=== PATIENT | female | born 1945 | race Caucasian/White ===

== ENCOUNTER → 2018-09-04 10:02 | Outpatient (CLI) | payer MEDICARE, BC ==
--- NOTE | 2018-09-05 11:19 | ST ---
PATIENT:NATTY APARICIO MEDICAL RECORD: [id number] SEX: F LOCATION:[facility] ORDER #: ADMISSION DATE: 09/04/18 AGE OF PATIENT: 73 REFERRING PHYSICIAN: INTERPRETING PHYSICIAN: CATARINO RIVERO MD DATE OF SERVICE: 09/04/2018 PROCEDURE: Nuclear stress test. INDICATIONS: Chest pain compatible with angina, abnormal ECG, shortness of breath. She was exercised on a standard Carlos Eduardo protocol for 5 minutes achieving greater than 85% max target heart rate response with 31 mCi of sestamibi injected at peak stress, 11 mCi used previously for rest images. FINDINGS: Gated SPECT reveals preserved ejection fraction at 70% with good wall motion and thickening and brightening throughout all segments. SPECT imaging Cardiolite was used as myocardial fusion agent. There is homogeneous uptake throughout all segments at rest and stress with no evidence of inducible ischemia or previous infarction. OVERALL IMPRESSION: 1. This is a normal nuclear stress test with no evidence of inducible ischemia or previous infarction. 2. Gated SPECT reveals a preserved ejection fraction at 70%. In this patient with ongoing symptomatology, the current scan does not suggest the presence of hemodynamically significant coronary artery disease. Evaluate noncardiac etiology of chest pain. TRANSINT:[id number] Voice Confirmation ID: [id number] DOCUMENT ID: [id number] CATARINO RIVERO MD at 1119 CC: [id number] DICTATION DATE: 09/04/18 1609 SYSTEMS DEVELOPMENT CONSULTANT: 09/05/18 0122 DEP CLI 09/04/18 [place] [id number]
== END | disposition home or self-care (01) ==
LOC: D.HCCARDIO 10:02
DX: I20.1 Angina pectoris with documented spasm (principal)